=== PATIENT | male | born 1970 | race Caucasian/White ===

== ENCOUNTER → 2019-02-07 08:10 | Outpatient (CLI) | payer BC, SELFPAY ==
--- NOTE | 2019-02-07 08:15 | US_ITS ---
US abdomen limited History:Episodes of upper abdominal pain and vomiting Ordering Physician:Arabella Pfeiffer Patient Age: 48 years Comparison:None Findings: Pancreas:Unremarkable. No obvious mass or abnormal fluid collection. No ductal dilatation Liver:Unremarkable. No obvious mass or abnormal fluid collection. No ductal dilatation Right Kidney:There is severe right hydronephrosis. The ureter is not demonstrated. Gallbladder:No gallstones, gallbladder wall thickening, pericholecystic fluid, or biliary dilatation. Impression:Severe right hydronephrosis
== END ==
PROVIDERS: PCP Nurse Practitioner Family; Visit Provider Nurse Practitioner Family
DX: K85.90 Acute pancreatitis without necrosis or infection, unspecified (principal); R11.11 Vomiting without nausea; R10.10 Upper abdominal pain, unspecified
CPT/HCPCS: 76705

== ENCOUNTER → 2020-07-25 09:28 | Outpatient (CLI) | payer BC, SELFPAY ==
--- NOTE | 2020-07-25 09:32 | CT_ITS ---
Procedure: CT ABDOMEN PELVIS W CON Referring Doctor: Arabella Pfeiffer Patient Age:49Y CLINICAL INDICATION: UPPER ABD PAIN,RT HYDRONEPHROSIS epigastric pain COMPARISON: No exams were available for comparison TECHNIQUE: 75 cc Optiray 350 IV contrast utilized Oral, enteric contrast included Helical 1axial images obtained with sagittal and coronal reformats. All CT scans at the facility use one or more dose reduction, viz: automated exposure control, ma/kV adjustment per patient size (including targeted exams where dose is matched to indication, i.e. head), or iterative reconstruction technique. FINDINGS: Lower thorax: No acute finding. Scant scarring peripherally lung bases. Calcified granuloma just above the left hemidiaphragm 6 mm size. Heart normal size no pericardial effusion. ABDOMEN: Liver: No masses or biliary dilatation. Gallbladder: Nondistended. No radio opaque stones. Pancreas: . generous head of the pancreas was borderline prominent duct through head of the pancreas. Tail the pancreas appears satisfactory but the head appears mildly enlarged with slight hazy appearance in the fat right of the head of the pancreas, and surrounding descending duodenum. Would also question some mild thickening at the gastric antrum and region of pylorus, coronal image 17. Just inferior to this region and adjacent head of pancreas are 2 slight enlarged lymph nodes. The largest measure 18 mm times 11 mm, coronal image 19, axial 40. Another mildly prominent node just lateral to this measuring 1 cm in size. These are both seen on coronal image 20. I would note that the hepatic flexure passes just beneath this area of inflammation and there may be a few diverticuli here but I do not see any convincing diverticulitis favor more likely these inflammatory changes more likely related to the distal stomach/duodenum all or pancreas but correlation with amylase and lipase are recommended. . Spleen: unremarkable Adrenals: : 2 cm left adrenal nodule. Non-specific character on this nonenhanced study. Would benefit from a follow-up pre and post-contrast, adrenal protocol follow-up subsequent exam and tied in with the follow-up and evaluation of pancreas Right adrenal is unremarkable tract. The left kidney appears hypertrophied and associated with a small right kidney. Left kidney-12 cm length. Right kidney 8.4 cm length. Slight stranding and about the right kidney. Mild fullness of right renal pelvis compared to the left. Neither ureter appears dilated. Urinary bladder unremarkable PELVIS: Moderate-sized prostate. Urinary bladder unremarkable. No free fluid pelvis GI tract Stomach again suspect slight, relative wall thickening at the distal antrum and region of pylorus. Upper normal wall thickness of the descending duodenum. The oral contrast has moved through these regions into the mid and distal small bowel, which appears normal. Terminal ileum appears normal. Appendix appears normal Right colon. Upper normal wall thickness at the right colon and cecum contrast just not entering this area. Moderate stool is seen throughout the right and transverse colon. Minimal stool descending colon and throughout rectosigmoid. Peritoneum: No abnormal fluid collections. No obvious inflammatory changes. No free air. Lymph nodes: No enlarged lymph nodes apparent. Vasculature: No evidence of abdominal aortic aneurysm. No retroperitoneal hemorrhage evident. Bones: No acute fract findings. Degenerative disc changes disc space narrowing L2/3 T11/12 noted of facet arthropathy lower L-spine IMPRESSION: Hazy, inflammatory changes in the fat at the
== END ==
PROVIDERS: PCP Nurse Practitioner Family; Visit Provider Nurse Practitioner Family
DX: R10.10 Upper abdominal pain, unspecified (principal); N13.30 Unspecified hydronephrosis
CPT/HCPCS: 74177; Q9967

== ENCOUNTER → 2020-08-12 13:20 | Outpatient (CLI) | payer BC, SELFPAY ==
--- NOTE | 2020-08-12 13:30 | US_ITS ---
PROCEDURE: US KIDNEY CLINICAL INDICATION: RT HYDRONEPHROSIS COMPARISON: CT CT ABDOMEN PELVIS W CON from 07/25/2020 FINDINGS: The right kidney is 8 x 3 x 5 cm. Left kidney is 12 x 5 x 4 cm. There is mild cortical thinning of the right kidney. There is minimal prominence of the right renal pelvis. The calyceal system is not dilated. IMPRESSION: Minimal prominence of the right renal pelvis with mild atrophic changes of the right kidney. Dictated by: Tyree José MD 08/12/2020 14:49 Tyree José MD in [place] 08/12/2020 14:49
== END ==
PROVIDERS: PCP Nurse Practitioner Family; Visit Provider Nurse Practitioner Family
DX: N13.30 Unspecified hydronephrosis (principal)
CPT/HCPCS: 76770

== ENCOUNTER → 2020-08-24 11:23 | Outpatient (CLI) | payer BC, SELFPAY ==
[2020-08-24 13:23] LABS: Coronavirus 19 IgG Antibody Negative (Negative); Coronavirus 19 IgM Antibody Negative (Negative)
== END ==
PROVIDERS: Visit Provider Internal Medicine Gastroenterology
DX: Z01.818 Encounter for other preprocedural examination (principal); Z13.810 Encounter for screening for upper gastrointestinal disorder
CPT/HCPCS: 36415; 86328

== ENCOUNTER → 2021-09-23 08:34 | Outpatient (POV) | payer BC, SELFPAY | PROVIDERS: Visit Provider Dermatology | DX: Z00.00 Encounter for general adult medical examination without abnormal findings (principal) ==

== ENCOUNTER 2023-11-08 14:20 | Emergency (ER) | payer BC, SELFPAY ==
[2023-11-08] VITALS (9 sets, daily range): BP systolic 118–150; BP diastolic 70–104; PULSE 61–86; RESP 16–19; TEMP 36.8; O2SAT 94–99; BMI 23.7
--- NOTE | 2023-11-08 14:45 | PC.NURSE ---
DR DOLAN AT BEDSIDE
--- NOTE | 2023-11-08 14:47 | CT_ITS ---
FINAL REPORT TECHNIQUE: After the administration of intravenous contrast, axial images were obtained through the abdomen and pelvis by computed tomography. This study was performed with technique to keep radiation doses as low as reasonably achievable, (ALARA). Individualized dose reduction techniques using automated exposure control or adjustment of the MA and/or KV according to the patient's size were employed. CLINICAL HISTORY: epigastric abd pain, n/v no BM for 1 week COMPARISON: 07/25/2020 FINDINGS: Abdomen: The lung bases are clear. The liver is normal in size and attenuation. Gallbladder is present. The spleen is unremarkable. There is a left adrenal mass measuring 28 mm, previously measured 25 mm which is nonspecific but may represent adenoma. The pancreas is unremarkable. There is severe right hydronephrosis, much worse than on prior exam to the level of the UPJ which may present UPJ stenosis/obstruction. The aorta is normal in caliber. There is no free fluid or adenopathy. Wall thickening is seen of the distal stomach antrum and pylorus which is nonspecific, favor inflammatory. Pelvis: The appendix is is normal. There is moderate stool throughout the colon. The urinary bladder is unremarkable. There is no free fluid or adenopathy. There are bilateral L5 pars defects. IMPRESSION: Severe right hydronephrosis to the level of the UPJ which may represent UPJ stenosis/obstruction. Left adrenal mass, nonspecific which may represent adenopathy. Wall thickening of the distal stomach antrum and pylorus, nonspecific, favor inflammatory. Moderate stool without evidence of obstruction. Reviewed, Interpreted and Dictated by Tru Knapp III, MD Transcribed by Geraldine Rodriguez Authenticated and [facility]
--- NOTE | 2023-11-08 14:48 | ED_ITS ---
Discharge Plan Disposition Patient Disposition: Xfer Short-Term Hosp Referrals Follow up/Referrals: Frank Mattson MD [Primary Care Provider] - See instructions Clinical Impressions Clinical Impression: Epigastric abdominal pain, Nausea & vomiting, Decreased frequency of bowel movements, Hydronephrosis, Acute pancreatitis, Gastric outlet obstruction Stand Alone Forms Stand Alone Forms: Transfer Record - ED Instructions Patient Instructions: DI for Acute Abdominal Pain Discharge ED Provider: Galileo Jacinto General Adult HPI <Latasha Carnes MD - Last Filed: 11/08/23 14:51> General Chief complaint: Abdominal Pain Stated complaint: wrights office and upper adominal area pain Time Seen by Provider: 11/08/23 14:44 Mode of Arrival: Ambulatory Source of Information: Patient Limitations: No Limitations Description of Symptoms (Recalled from ER Triage Doc. by RN): Patient complaint of upper abdomen pain for 1 week. States that he has been unable to eat or drink during this timeframe and has also been vomiting. States his pain is worse after eating or drinking. History of Present Illness HPI narrative: Patient is a 53-year-old male no significant past medical history no history of any abdominal surgeries presents today with epigastric discomfort nausea vomiting no bowel movement for the last week. States he is passing some flatus. does not drink heavily no history of pancreatitis. No exertional chest pain. Related Data Allergies Allergy/AdvReac Type Severity Reaction Status Date / Time No Known Allergies Allergy Verified 08/22/20 10:49 PFSH <Latasha Carnes MD - Last Filed: 11/08/23 14:51> PFS Disclaimer: The information contained in this section may have been updated after the patient was seen, as this information can be updated by other users. Social History Smoking Status: Current every day smoker tobacco type: cigarettes packs per day: 1 second hand exposure: Yes alcohol intake: never current occupational status: employed Travel in the last 8 weeks: None housing: house current occupation: [employer] current occupational exposures/hazards: No caffeine: Yes <Latasha Carnes MD - Last Filed: 11/08/23 14:51> ROS Obtained: Yes All systems reviewed & no additional complaints except as documented Physical Exam <Latasha Carnes MD - Last Filed: 11/08/23 14:51> General General appearance: alert Respiratory Respiratory exam: Present normal lung sounds bilaterally Cardiovascular Cardiovascular exam: Present regular rate Abdominal Exam Abdominal exam: Present soft and tenderness (The palpation there is epigastric tenderness palpation) Neurological Exam Neurological exam: Present alert Medical Decision Making <Latasha Carnes MD - Last Filed: 11/08/23 14:51> Wisam Schilling Pt receiving controlled substance: No Vital Signs: 11/08/23 14:21 11/08/23 15:00 11/08/23 15:30 Temperature 98.2 F Temperature Source Oral Pulse Rate 61 Pulse Rate [Radial] 86 Respiratory Rate 16 Blood Pressure 127/99 H 129/87 Blood Pressure [Right Arm] 118/91 H Blood Pressure Mean 105 Blood Pressure Mean [Right Arm] 100 Blood Pressure Source [Right Arm] Automatic Cuff Blood Pressure Position [Right Arm] Sitting 02 Sat by Pulse Oximetry 98 95 Oxygen Delivery Method Room Air Room Air Room Air 11/08/23 16:00 11/08/23 16:30 Temperature Temperature Source Pulse Rate 61 64 Pulse Rate [Radial] Respiratory Rate Blood Pressure 139/91 H 123/88 Blood Pressure [Right Arm] Blood Pressure Mean Blood Pressure Mean [Right Arm] Blood Pressure Source [Right Arm] Blood Pressure Position [Right Arm] 02 Sat by Pulse Oximetry 97 94 L Oxygen Delivery Method Room Air Room Air Lab Data Lab Results 11/08/23 14:30: WBC 14.3 H, RBC 5.06, Hgb 17.2, Hct 48.4, MCV 95.8 H, MCH 34.0 H , MCHC 35.5 H, RDW 13.1, Plt Count 320, MPV 8.1, Neut % (Auto) 83.7 H, Lymph % (Auto) 10.6, [place] % (Auto) 5.2, Eos % (Auto) 0.1, Baso % (Auto) 0.4, Neut # (Auto) 12.0 H, Lymph # (Auto) 1.5, [place] # (Auto) 0.8, Eos # (Auto) 0.0, Baso # (Auto) 0.1, Sodium 133 L, Potassium 3.5, Chloride 79 L, Carbon Dioxide 40 H, Anion Gap 17.5 H, BUN 59 H, Creatinine 3.10 H, Estimated Creat Clear 31, Estimated GFR 21 L, Est GFR ( Amer) 25 L, Glucose 143 H, Calcium 9.0, Total Bilirubin 1.2, AST 37, ALT 37, Alkaline Phosphatase 82, Troponin I < 0.01, Total Protein 8.5 H, Albumin 4.8, Globulin 3.7 H, Albumin/Globulin Ratio 1.3, Lipase 1055 H 11/08/23 14:30 11/08/23 14:30 Orders (Tests/Meds): ED MEDICATIONS Generic Name Dose Route Start Last Admin Trade Name Cliftonq PRN Reason Stop Dose Admin Sodium Chloride 10 ml 11/08/23 15:56 11/08/23 15:57 Sodium Chloride 0.9% 10ml Syr (Rad Only) IV 12/08/23 15:55 10 ml NEEDED PRN Administration Maintain IV Site Discontinued Medications Generic Name Dose Route Start Last Admin Trade Name Freq PRN Reason Stop Dose Admin Belladonna Alkaloids 60 ml 11/08/23 14:47 11/08/23 14:56 Belladonna Alkaloids 60 Ml Ml PO 11/08/23 14:48 60 ml ONCE ONE Administration Lactated Ringer's 1,000 mls @ 999 mls/hr 11/08/23 15:00 11/08/23 14:56 Lactated Ringer's 1000 Ml Bag IV 11/08/23 16:00 999 mls/hr .Q1H1M ELSY Administration Lactated Ringer's 1,000 mls @ 999 mls/hr 11/08/23 15:48 11/08/23 16:01 Lactated Ringer's 1000 Ml Bag IV 11/08/23 16:48 999 mls/hr .Q1H1M ONE Administration Iopamidol 75 ml 11/08/23 15:56 11/08/23 15:56 Iopamidol-370 (76%);100ml Bottle IV 11/08/23 15:57 75 ml ONCE ONE Administration Ketorolac Tromethamine 15 mg 11/08/23 14:47 11/08/23 14:56 Ketorolac 30mg/Ml Vial IV 11/08/23 14:48 15 mg ONCE ONE Administration Ondansetron HCl 4 mg 11/08/23 14:47 11/08/23 14:56 Ondansetron 4mg/2ml Vial IV 11/08/23 14:48 4 mg ONCE ONE Administration ORDERS Category Date Time Status CT abdomen pelvis w con Stat Cat Scan 11/08/23 14:47 Completed CBC w/Auto Diff [Complete Blood Count Auto Diff] Stat Lab 01/15/24 14:30 Completed CMP [Comprehensive Metabolic Panel] Stat Lab 11/08/23 14:30 Completed Lipase Stat Lab 11/08/23 14:30 Completed Trop I [Troponin I] Stat Lab 11/08/23 14:30 Completed Troponin I Q3H Lab 11/08/23 18:00 Ordered Troponin I Q3H Lab 11/08/23 21:00 Ordered ECG initial [place] Routine Y 11/08/23 15:15 Completed Medical Decision Narrative: 53-year-old gentleman here with nausea vomiting no bowel movements over the last week differential includes bowel obstruction, ileus, gastric outlet obstruction, malignancy, constipation etc. Will get a contrasted CT scan for further evalua tion addition to labs. IV fluids pain medicine nausea medicine GI cocktail have been administered will reassess after this workup is completed. Will be transitioned to Dr. Galileo Jacinto at 3 PM for further evaluation and treatment. <Galileo Jacinto MD - Last Filed: 11/08/23 18:09> Vital Signs: 11/08/23 14:21 11/08/23 15:00 11/08/23 15:30 Temperature 98.2 F Temperature Source Oral Pulse Rate 61 Pulse Rate [Radial] 86 Respiratory Rate 16 Blood Pressure 127/99 H 129/87 Blood Pressure [Right Arm] 118/91 H Blood Pressure Mean 105 Blood Pressure Mean [Right Arm] 100 Blood Pressure Source [Right Arm] Automatic Cuff Blood Pressure Position [Right Arm] Sitting 02 Sat by Pulse Oximetry 98 95 Oxygen Delivery Method Room Air Room Air Room Air 11/08/23 16:00 11/08/23 16:30 Temperature Temperature Source Pulse Rate 61 64 Pulse Rate [Radial] Respiratory Rate Blood Pressure 139/91 H 123/88 Blood Pressure [Right Arm] Blood Pressure Mean Blood Pressure Mean [Right Arm] Blood Pressure Source [Right Arm] Blood Pressure Position [Right Arm] 02 Sat by Pulse Oximetry 97 94 L Oxygen Delivery Method Room Air Room Air Lab Data Lab Results 11/08/23 14:30: WBC 14.3 H, RBC 5.06, Hgb 17.2, Hct 48.4, MCV 95.8 H, MCH 34.0 H , MCHC 35.5 H, RDW 13.1, Plt Count 320, MPV 8.1, Neut % (Auto) 83.7 H, Lymph % (Auto) 10.6, [place] % (Auto) 5.2, Eos % (Auto) 0.1, Baso % (Auto) 0.4, Neut # (Auto) 12.0 H, Lymph # (Auto) 1.5, [place] # (Auto) 0.8, Eos # (Auto) 0.0, Baso # (Auto) 0.1, Sodium 133 L, Potassium 3.5, Chloride 79 L, Carbon Dioxide 40 H, Anion Gap 17.5 H, BUN 59 H, Creatinine 3.10 H, Estimated Creat Clear 31, Estimated GFR 21 L, Est GFR ( Amer) 25 L, Glucose 143 H, Calcium 9.0, T otal Bilirubin 1.2, AST 37, ALT 37, Alkaline Phosphatase 82, Troponin I < 0.01, Total Protein 8.5 H, Albumin 4.8, Globulin 3.7 H, Albumin/Globulin Ratio 1.3, Lipase 1055 H Orders (Tests/Meds): ED MEDICATIONS Generic Name Dose Route Start Last Admin Trade Name Freq PRN Reason Stop Dose Admin Sodium Chloride 10 ml 11/08/23 15:56 11/08/23 15:57 Sodium Chloride 0.9% 10ml Syr (Rad Only) IV 12/08/23 15:55 10 ml NEEDED PRN Administration Maintain IV Site Discontinued Medications Generic Name Dose Route Start Last Admin Trade Name Freq PRN Reason Stop Dose Admin Belladonna Alkaloids 60 ml 11/08/23 14:47 11/08/23 14:56 Belladonna Alkaloids 60 Ml Ml PO 11/08/23 14:48 60 ml ONCE ONE Administration Lactated Ringer's 1,000 mls @ 999 mls/hr 11/08/23 15:00 11/08/23 14:56 Lactated Ringer's 1000 Ml Bag IV 11/08/23 16:00 999 mls/hr .Q1H1M ELSY Administration Lactated Ringer's 1,000 mls @ 999 mls/hr 11/08/23 15:48 11/08/23 16:01 Lactated Ringer's 1000 Ml Bag IV 11/08/23 16:48 999 mls/hr .Q1H1M ONE Administration Iopamidol 75 ml 11/08/23 15:56 11/08/23 15:56 Iopamidol-370 (76%);100ml Bottle IV 11/08/23 15:57 75 ml ONCE ONE Administration Ketorolac Tromethamine 15 mg 11/08/23 14:47 11/08/23 14:56 Ketorolac 30mg/Ml Vial IV 11/08/23 14:48 15 mg ONCE ONE Administration Ondansetron HCl 4 mg 11/08/23 14:47 11/08/23 14:56 Ondansetron 4mg/2ml Vial IV 11/08/23 14:48 4 mg ONCE ONE Administration ORDERS Category Date Time Status CT abdomen pelvis w con Stat Cat Scan 11/08/23 14:47 Completed CBC w/Auto Diff [Complete Blood Count Auto Diff] Stat Lab 11/08/23 14:30 Comp leted CMP [Comprehensive Metabolic Panel] Stat Lab 11/08/23 14:30 Completed Lipase Stat Lab 11/08/23 14:30 Completed Trop I [Troponin I] Stat Lab 11/08/23 14:30 Completed Troponin I Q3H Lab 11/08/23 18:00 Ordered Troponin I Q3H Lab 11/08/23 21:00 Ordered ECG initial [place] Routine Y 11/08/23 15:15 Completed Medical Decision Narrative: 53-year-old gentleman here with nausea vomiting no bowel movements over the last week differential includes bowel obstruction, ileus, gastric outlet obstruction, malignancy, constipation etc. Will get a contrasted CT scan for further evaluation addition to labs. IV fluids pain medicine nausea medicine GI cocktail have been administered will reassess after this workup is completed. Will be transitioned to Dr. Galileo Jacinto at 3 PM for further evaluation and treatment. [place]: I assume primary responsibility for this patient after signout from previous physician. On reevaluation, patient feeling better. Independently interpreted workup. Patient does have mild leukocytosis 14. Lipase elevated greater than 1000. Nonactionable LFTs. Troponin negative. CT abdomen pelvis with right kidney with severe hydronephrosis and minimal enhancement with neighboring compression on duodenum, with associated pancreatic duct dilation. Patient also has gastric antrum thickening disproportionate to rest of stomach and mild pyloric thickening. No evidence of perforation. Because of this, multiple hospitals were contacted after concern for need for urology for right kidney obstruction and mass effect. After multiple attempts at other facilities, [facility] was contacted. Graciously excepted transfer to [facility] [place]. Because patient high risk for clinical decompensation if discharged, deemed appropriate for transfer and inpatient admission. Results were relayed to patient who voiced understanding and patient was agreeable to transfer, inpatient admission, and management. Patient was graciously accepted and transferred to [facility] [place] for further definitive management, under Dr. Garcia. Critical Care <Latasha Carnes MD - Last Filed: 11/08/23 14:51> Critical Care Time Critical Care Time: No
[2023-11-08] MEDS: BELLADONNA ALKALOIDS 60 ML ML PO (14:56)
[2023-11-08] MEDS: KETOROLAC 30MG/ML VIAL 15 MG IV (14:56)
[2023-11-08] MEDS: LACTATED RINGERS 1000ML 1,000 ML 999 ML IV ×2 (14:56→16:01)
[2023-11-08] MEDS: ONDANSETRON 4MG/2ML VIAL 4 MG IV (14:56)
[2023-11-08 15:07] LABS: Basophils # 0.1 K/mm3 (0-0.2); Basophils % 0.4 % (0.1-2.0); Eosinophils % 0.1 % (0.1-12.0); Hematocrit 48.4 % (42.0-52.0); Hemoglobin 17.2 g/dL (14.1-18.0); Lymphocytes # 1.5 K/mm3 (0.7-4.5); Lymphocytes % 10.6 % (10-50); Mean Corpuscular HGB Conc 35.5 g/dL (31.8-35.4); Mean Corpuscular Volume 95.8 fl (80-94); Mean Platelet Volume 8.1 fl (7.4-10.4); Monocytes # 0.8 K/mm3 (0.1-1.0); Monocytes % 5.2 % (1.7-9.3); Neutrophils % 83.7 % (37.0-80.0); Platelet Count 320 K/mm3 (142-424); Red Blood Count 5.06 M/mm3 (4.60-6.20); Red Cell Distribution Width 13.1 % (11.5-17.5); White Blood Count 14.3 K/mm3 (4.8-10.8)
--- NOTE | 2023-11-08 15:15 | ECG_ITS ---
APPROVED REPORT Exam: Resting ECG HR:68 bpm ECG Measurements Heart Rate 68 AXES OH 152 P 75 QRSd 108 QRS 93 QT 410 T 73 QTc 427 Conclusion SINUS RHYTHM BORDERLINE RIGHT AXIS DEVIATION [QRS AXIS > 90] INCOMPLETE RIGHT BUNDLE BRANCH BLOCK [90+ ms QRS DURATION, TERMINAL R IN V1/V2, 40+ ms S IN I/aVL/V4/V5/V6] BORDERLINE ECG UNCONFIRMED REPORT Electronically signed by : Pal Mariano MD 11/08/2023 20:15:27
[2023-11-08 15:22] LABS: Chloride 79 mmol/L (98-107)
[2023-11-08 15:23] LABS: Potassium 3.5 mmoL/L (3.5-5.1); Sodium 133 mmol/L (136-145)
[2023-11-08 15:25] LABS: Alanine Aminotransferase 37 U/L (12-78); Alkaline Phosphatase 82 U/L (38-126); Aspartate Amino Transferase 37 U/L (17-59); Bilirubin,Total 1.2 mg/dl (0.2-1.3); Blood Urea Nitrogen 59 mg/dl (9-20); Creatinine Clearance Estimated 31 mL/min (50-200); Estimated Glomerular Filt Rate 21 ml/min (>60); GFR (African American) 25 ML/MIN (>60)
[2023-11-08 15:26] LABS: Albumin Level 4.8 g/dl (3.5-5.0); Albumin/Globulin Ratio 1.3 (1.1-1.8); Globulin 3.7 g/dL (1.3-3.2); Glucose 143 mg/dl (74-100); Total Protein,Serum 8.5 g/dl (6.3-8.2)
[2023-11-08 15:35] LABS: Anion Gap 17.5 mEq/L (5-15); Carbon Dioxide 40 mmol/L (22.0-30.0)
[2023-11-08 15:39] LABS: Troponin I < 0.01 ng/ml (0.00-0.034)
[2023-11-08 15:40] LABS: Lipase 1055 U/L (23-300)
--- NOTE | 2023-11-08 15:40 | PC.NURSE ---
CRITICAL LAB: LIPASE 1055 AWARE
--- NOTE | 2023-11-08 15:55 | HMH.ITSTN ---
GFR completion/results were overrode for the use of contrast media by the Physician on a risk vs. benefit situation with this patient.
[2023-11-08] MEDS: IOPAMIDOL-370 (76%);100ML BOTTLE 75 ML IV (15:56)
[2023-11-08] MEDS: SODIUM CHLORIDE 0.9% 10ML SYR (RAD ONLY) 10 ML IV (15:57)
--- NOTE | 2023-11-08 16:44 | PC.NURSE ---
DR EUBANKS SPEAKING WITH RADIOLOGIST
--- NOTE | 2023-11-08 17:05 | PC.NURSE ---
Spoke with [facility] transfer [place] about possible transfer. They are checking call status at [place] and are going to call back.
--- NOTE | 2023-11-08 17:34 | PC.NURSE ---
[facility] does not have services needed available at this time. Call placed to waiting for call back
--- NOTE | 2023-11-08 17:50 | PC.NURSE ---
DR EUBANKS SPEAKING WITH [facility]
--- NOTE | 2023-11-08 18:00 | PC.NURSE ---
Pt accepted to [facility] by Dr. Garcia
--- NOTE | 2023-11-08 18:39 | PC.NURSE ---
EMS notified of pt transfer to [facility]
--- NOTE | 2023-11-08 19:31 | PC.NURSE ---
EMS notified that patient is transferring POV
== END 2023-11-08 19:37 | disposition short-term general hospital (02) ==
PROVIDERS: Student in an Organized Health Care Education/Training Program; Emergency Provider Emergency Medicine; PCP Family Medicine
DX: R10.13 Epigastric pain (principal); R11.2 Nausea with vomiting, unspecified; K85.90 Acute pancreatitis without necrosis or infection, unspecified; N13.30 Unspecified hydronephrosis; F17.210 Nicotine dependence, cigarettes, uncomplicated
CPT/HCPCS: 74177; 80053; 83690; 84484; 85025; 93005; 96361; 96374; 96375; 99285; J2405; Q9967